=== PATIENT | female | born 1955 | race Caucasian/White ===

== ENCOUNTER → 2017-09-18 | Day surgery (SDC) | payer OTHER ==
[~2017-09-18] MED LIST: ALLEGRA ALLERGY60 MG PO; ATORVASTATIN CA20 MG PO; CALCIUM PO; COQ-10 PO; CRESTOR10 MG PO; EPHEDRINE SULFATE INJ 50 MG/10 ML SYR ONE; FENTANYL CITRATE/PF 100MCG/2 ML INJ ONE; GLUCAGON FOR INJ 1 MG VIAL ONE; HYOSCYAMINE SULFATE 0.5 MG/ML AMP ONE; INVOKANA PO; METFORMIN HCL500 MG PO; MIDAZOLAM HCL 2 MG/2 ML VIAL ONE; PANTOPRAZOLE SO40 MG PO; PROPOFOL IV EMULSION 10 MG/ML 50 ML VIAL ONE; VITAMIN B1 PO; VITAMIN D PO
--- NOTE | 2017-09-18 09:56 | Operative Report ---
DATE OF PROCEDURE: September 18, 2017 PROCEDURES PERFORMED 1. Esophagogastroduodenoscopy with biopsies. 2. Colonoscopy with polypectomy and biopsies. INDICATIONS FOR EGD: Dysphagia. INDICATIONS FOR COLONOSCOPY: Colorectal cancer screening and personal history of colon polyps. MEDICATION: Patient was done under MAC. Please see anesthesiologist's note. PROCEDURE: With the patient in the left lateral decubitus position, the flexible fiberoptic Olympus gastroscope was introduced into the esophagus under direct visualization without any difficulty. There was some patchy erythema noted in the distal esophagus. There was a mild stricture noted at the GE junction that was dilated to size 54-[place] Winter. The scope was then advanced with ease into the stomach. Mucosa overlying the antrum and the body revealed some patchy erythema and low-grade to moderate edema, and biopsies were obtained and sent to stain for H. pylori. An approximately 4-mm nodule was noted in the antrum that was biopsied. The pylorus was of normal contour and shape. It was intubated with ease. The scope was advanced all the way to the 2nd portion of the duodenum. The scope was then withdrawn slowly. Mucosa overlying the proximal 2nd portion, as well as the duodenal bulb other than some patchy erythema noted in the bulb appeared to be within normal limits. The scope was then withdrawn back into the stomach and retroflexed. The mucosa overlying the fundus and the cardia and appeared to be within normal limits. The scope was then straightened out. The stomach was decompressed. The scope was subsequently withdrawn. Patient tolerated the procedure well. IMPRESSION 1. Mild distal esophagitis. 2. Gastritis, biopsied. Biopsies sent to stain for Helicobacter pylori. 3. Gastric nodule, antrum, biopsied. PLAN: Follow up histology. Continue Protonix 40 mg 1 p.o. q.a.m. a.c. Patient was then turned around. After adequate lubrication of the anal canal, a flexible fiberoptic Olympus colonoscope was inserted into the rectum with ease and advanced all the way to the cecum. The midsigmoid colon was sharply angulated and was negotiated with some difficulty. One sessile polyp was noted in the cecum and that was snared. An approximately 1 cm submucosal lesion was noted in the in the mid-ascending colon that was suspicious for lipoma and that was biopsied. The rest of the ascending, transverse, descending, sigmoid, and rectum grossly appeared to be within normal limits. The midsigmoid colon was not optimally visualized as it was sharply angulated. The scope was then retroflexed into the distal rectum and small internal hemorrhoids were noted, none of which was actively bleeding. The scope was then straightened out. The scope was subsequently withdrawn. Patient tolerated the procedure well. IMPRESSION 1. Cecal polyp, snared. 2. Rule out lipoma, ascending colon. 3. Internal hemorrhoids, none actively bleeding. PLAN: Follow up histology. Initiate high-fiber and low-fat diet. Initiate high-fiber supplement. Patient will need a followup colonoscopy in 3 years. Job#: [id number] GUERITA
== END | disposition home or self-care (01) ==
LOC: OR 07:05
PROVIDERS: ATTEND Internal Medicine Gastroenterology
DX: Z12.11 Encounter for screening for malignant neoplasm of colon (principal); K63.5 Polyp of colon; K29.70 Gastritis, unspecified, without bleeding; K22.2 Esophageal obstruction; K31.89 Other diseases of stomach and duodenum; K63.9 Disease of intestine, unspecified; K21.9 Gastro-esophageal reflux disease without esophagitis; K20.9 Esophagitis, unspecified; K64.8 Other hemorrhoids; E11.9 Type 2 diabetes mellitus without complications; F17.200 Nicotine dependence, unspecified, uncomplicated; Z01.810 Encounter for preprocedural cardiovascular examination
CPT/HCPCS: 36415; 43239; 43450; 45380; 45385; 82948; 93005; J1610; J1980; J2250

== ENCOUNTER 2018-09-25 14:40 | Inpatient (IN) | payer OTHER ==
[~2018-09-25] VITALS: Ht 162.6 cm; Wt 80.7 kg
[~2018-09-25 14:40] MED LIST changes: -EPHEDRINE SULFATE INJ 50 MG/10 ML SYR ONE; -FENTANYL CITRATE/PF 100MCG/2 ML INJ ONE; -GLUCAGON FOR INJ 1 MG VIAL ONE; -HYOSCYAMINE SULFATE 0.5 MG/ML AMP ONE; -MIDAZOLAM HCL 2 MG/2 ML VIAL ONE; -PROPOFOL IV EMULSION 10 MG/ML 50 ML VIAL ONE
--- OUTSIDE RECORDS SUMMARY | 2018-09-25 14:43 | XMS REPORT ---
Author Author [facility] Address Unknown Phone Unavailable Care Team Providers Care Bark Tanner Name Role Phone Unavailable Unavailable Problems This patient has no known problems. Allergies, Adverse Reactions, Alerts This patient has no known allergies or adverse reactions. Medications This patient has no known medications.
[2018-09-25] MEDS ORDERED: MIDAZOLAM HCL 2 MG/2 ML VIAL ONE (14:48)
[2018-09-25] MEDS ORDERED: FENTANYL CITRATE/PF 100MCG/2 ML INJ ONE (14:48)
[2018-09-25] MEDS ORDERED: INSULIN REGULAR, HUMAN 100 UNIT/1 ML 3ML VIAL IV STA (15:41)
[2018-09-25] MEDS ORDERED: INSULIN REGULAR, HUMAN 100 UNIT/1 ML 3ML VIAL SQ ONE (15:45)
[2018-09-25] MEDS ORDERED: SODIUM CHLORIDE 0.9% 1000ML 1,000 ML IV SCH ×3 (15:45→18:15)
[2018-09-25] MEDS ORDERED: INSULIN REGULAR, HUMAN 100 UNIT/1 ML 3ML VIAL IV ONE (16:00)
[2018-09-25] MEDS ORDERED: PIPER-TAZ 3.375 GM 50 ML IV ONE (16:00)
[2018-09-25] MEDS ORDERED: VANCOMYCIN 1GM/NS 250 ML 250 ML IV ONE (16:30)
--- NOTE | 2018-09-25 17:10 | Diagnostic Imaging Report ---
EXAM: CT Pelvis WITH contrast INDICATION: Concern for perineal infectious process. ^[id number] ^[id number] COMPARISON: None. TECHNIQUE: Pelvis were scanned utilizing a multidetector helical scanner from the iliac crest to the pubic symphysis after administration of IV contrast. Coronal and sagittal reformations were obtained. Routine protocol was performed. Scan was performed when during portal venous phase. IV CONTRAST: 100 mL of Omnipaque 300 ORAL CONTRAST: Water COMPLICATIONS: None RADIATION DOSE: Total DLP: 375.24 mGy*cm Estimated effective dose: (DLP x 0.015 x size factor) mSv CTDIvol has been reviewed. It is below the limits set by the Radiation Protocol Committee (RPC). FINDINGS: LINES and TUBES: None. GI TRACT: Visualized bowel loops are unremarkable. No evidence of bowel obstruction. Normal appendix. PELVIC ORGANS/BLADDER: Uterus and adnexa are unremarkable on limited CT assessment. Normal bladder. LYMPH NODES: 2.3 cm right external iliac lymph node (series 2, image 31), likely reactive. VESSELS: Mild aortoiliac atherosclerotic disease. PERITONEUM / RETROPERITONEUM: No free air or fluid. BONES: L4-5 degenerative changes. SOFT TISSUES: Fat stranding and soft tissue gas, extending from right perineum to the right labia major. IMPRESSION: Fat stranding and soft tissue gas, extending from right perineum to the right labia major, concerning for necrotizing fasciitis or Serene gangrene. Signed by: Dr. Morris Noonan MD on 09/25/2018 5:07 PM
[2018-09-25] MEDS ORDERED: ACETAMINOPHEN 1000 MG/100 ML IV ONE (17:14)
[2018-09-25] MEDS ORDERED: PROPOFOL IV EMULSION 10 MG/ML 20 ML VIAL ONE (17:14)
[2018-09-25] MEDS ORDERED: KETOROLAC TROMETHAMINE 30 MG/ML VIAL ONE (17:14)
[2018-09-25] MEDS ORDERED: DEXAMETHASONE SOD PHOS INJ 4 MG/ML VIAL ONE (17:14)
[2018-09-25] MEDS ORDERED: SUCCINYLCHOLINE 200 MG/10 ML SYR ONE (17:14)
[2018-09-25] MEDS ORDERED: ONDANSETRON HCL INJ 2 MG/ML VIAL ONE (17:14)
[2018-09-25] MEDS ORDERED: LIDOCAINE HCL 2% LOCAL INJ 5 ML SDV VIAL INJ ONE (17:14)
[2018-09-25] MEDS ORDERED: SEVOFLURANE INHAL SOLN 250 ML PEN BTL ONE (17:14)
[2018-09-25] MEDS ORDERED: DEXTROSE 50% SYRINGE 50 ML IV PRN (17:45)
[2018-09-25] MEDS ORDERED: ONDANSETRON HCL INJ 2 MG/ML VIAL IV PRN ×2 (17:45→22:30)
[2018-09-25] MEDS ORDERED: HYDROMORPHONE 1MG/1ML INJ IV PRN (17:45)
[2018-09-25] MEDS: VANCOMYCIN 1GM/NS 250 ML 250 ML IV SCH (17:47)
[2018-09-25] MEDS ORDERED: PIPER-TAZ 3.375 GM 50 ML IV SCH ×2 (18:00→22:00)
--- NOTE | 2018-09-25 18:21 | NUR ---
called ems around 1800 report to matias Lyles
--- NOTE | 2018-09-25 18:23 | NUR ---
informed of need to contact dr segal on arrival during report.
[2018-09-25] MEDS ORDERED: CLINDAMYCIN PHOS 900MG/ 50ML 50 ML IV ONE (18:45)
[2018-09-25 20:00] VITALS: BP 149/65
[2018-09-25] MEDS: SODIUM CHLORIDE 0.9% 1000ML 1,000 ML IV SCH (20:00)
--- NOTE | 2018-09-25 20:01 | NUR ---
Pt received from [facility]. Assumed care due to pt needing a female nurse. Pt A&O and in no apparent distress. Pt labial area assessed and pt has no complaints of pain currently. All safety measures ensured. Dr. Perez contacted as requested once pt arrived to floor. Awaiting MD orders and to see if pt possibly having surgery tonight.
[2018-09-25] MEDS ORDERED: HYDROMORPHONE 2MG/ML 2 MG/ML ML IV PRN (20:15)
[2018-09-25 20:20] VITALS: BP 149/65
--- NOTE | 2018-09-25 20:27 | NUR ---
2nd call placed to Dr. Perez
--- NOTE | 2018-09-25 21:21 | NUR ---
Dr. Chris shipley to see pt; Pt to have I&D with debridement of perineal abscess tonight. Consent signed and pt NPO since this am.
--- NOTE | 2018-09-25 21:52 | NUR ---
pt off unit for surgery
--- NOTE | 2018-09-25 22:22 | Consultation ---
DATE OF CONSULTATION: September 25, 2018 REFERRING PHYSICIAN: Dr. Tristin Young HISTORY OF PRESENT ILLNESS: Patient is a 63-year-olo female who presents with complaints of pain and swelling in the right perineal area. This started about 10 days ago as what she says was a boil in the right side of her vulvar area. So, she tried to drain it herself, but then went to urgent care where they gave her antibiotics, but she did not improve and she came to the emergency room today where she was found to have a large area of swelling in the perineum. Patient had a CT scan of the abdomen and pelvis, which reveals inflammatory changes in this area with air on the tissues. PAST MEDICAL HISTORY: Significant for diabetes mellitus. Medications at home are metformin for this. She also has a history of hypercholesterolemia for which she takes atorvastatin. OTHER MEDICATIONS: Shamika, Protonix, Invokana, vitamin D, and calcium. ALLERGIES: SHE HAS ALLERGIES TO SULFA. FAMILY HISTORY: Noncontributory. SOCIAL HISTORY: The patient is a former smoker. Says she quit about a month ago. Does not drink alcohol. REVIEW OF SYSTEMS: She denies any fever or weight loss. No other symptoms. No chest pains. No shortness of breath. PHYSICAL EXAMINATION GENERAL: The patient is awake and alert. VITAL SIGNS: Normal. She is afebrile. HEENT: Reveals no scleral icterus. NECK: No masses. LUNGS: Equal breath sounds. They are clear bilaterally. CARDIAC: Regular rate and rhythm with no murmur. ABDOMEN: Soft. There is no tenderness. No mass. No organomegaly. PELVIC: In the vulvar area, there is swelling of the right labia majora with erythema, which extends up into the suprapubic area. There is no obvious necrotic tissue. It was very tender and no drainage is noted. EXTREMITIES: No edema. NEUROLOGIC: Grossly intact. LABORATORY TESTS: White blood cell count is 18.9, hemoglobin and hematocrit normal. Chemistries are elevated. Glucose 411. BUN is mildly elevated at 25. ASSESSMENT AND PLAN: A 63-year-old female with possible necrotizing infection in the perineum. She will need surgery to be done tonight to drain the area with excisional debridement. Procedure was explained to the patient including risks, benefits, and alternatives. She understands the procedure. She has had the opportunity to ask questions. Thank you for asking me to see Ms Mahmood. Job#: [id number] RTY
[2018-09-25] MEDS ORDERED: MORPHINE SULFATE INJ 4 MG/ML INJ IV PRN (22:30)
[2018-09-25] MEDS ORDERED: CLINDAMYCIN PHOS 900MG/ 50ML 50 ML IV SCH (23:00)
--- NOTE | 2018-09-25 23:34 | NUR ---
Pt returned to unit from surgery. Pt doing well and in no apparent distress. Bedside report received from OR nurse. Assess wound post surgery, clean dry and intact. Pt states pain is 1 out of 10 currently.
--- NOTE | 2018-09-25 23:42 | Operative Report ---
DATE OF PROCEDURE: September 25, 2018 PREOPERATIVE DIAGNOSIS: Right vulvar abscess, necrotizing fasciitis of the perineum. POSTOPERATIVE DIAGNOSIS: Right vulvar abscess, necrotizing fasciitis of the perineum. PROCEDURE: Incision and drainage of right vulvar abscess, excisional debridement of necrotizing fasciitis of the right perineum, skin, subcutaneous tissue and fascia 300 cm2. CLINICAL RESEARCH ANALYST: None. ANESTHESIA: General endotracheal. INDICATIONS AND FINDINGS: Patient is a 63-year-old female who presented with complains of pain and swelling starting in the right vulvar area and extended up into the right groin and suprapubic area. At surgery, there was abscess with purulent fluid within the right vulva, but there was necrotizing infection extending superiorly and also somewhat laterally involving the right perineum and suprapubic area, skin, subcutaneous tissue and fascia. The underlying muscle was healthy. All necrotic tissue was excised. TECHNIQUE: After adequate general endotracheal anesthesia with the patient in lithotomy position, the perineum and lower abdomen were prepped and draped in sterile fashion with Betadine solution. Starting on the right vulvar area, an incision was made, carried down through the subcutaneous tissue. The abscess cavity was entered, which was in the deep subcutaneous tissue extending down to the fascia. Purulence was drained. Sample was taken for culture and sensitivity. There was found to be a necrotic tissue which was excised and it was found that infection extended laterally as well as superiorly and all the necrotic tissue was excised. This involved subcutaneous tissue and fascia and somewhat small amount of skin which was from the vulva. The tissue was excised back to healthy bleeding tissue. The area of debridement was total of 300 cm2. Hemostasis was achieved with electrocautery. The wound was irrigated with saline, inspected for hemostasis which was seem to be adequate. The wound was then dressed open with saline moistened gauze and sterile dressing applied. The patient tolerated procedure well. Estimated blood loss was 75 mL. There were no complications. All counts were correct. The patient was taken to the recovery room in satisfactory condition. Job#: [id number] GAU cc:Tristin Young MD
[2018-09-26] VITALS (7 sets, daily range): BP systolic 100–151; BP diastolic 55–82
[2018-09-26] MEDS: SODIUM CHLORIDE 0.9% 1000ML 1,000 ML IV SCH ×4 (00:42→18:30)
[2018-09-26] MEDS: PIPER-TAZ 3.375 GM 50 ML IV SCH ×3 (05:41→17:30)
[2018-09-26 06:20] LABS: BASOPHILS % 0.2 % (0.0-1.0); HEMATOCRIT 31.6 % (34.2-44.1); HEMOGLOBIN 9.6 g/dL (12.0-16.0); LYMPHOCYTES # (AUTO) 1.3 (1.0-3.2); LYMPHOCYTES % 6.5 % (18.0-39.1); MEAN CORPUSCULAR HEMOGLOBIN 22.3 pg (28-32); MEAN CORPUSCULAR HGB CONC 30.4 g/dL (31-35); MEAN CORPUSCULAR VOLUME 73.5 fL (81-99); MONOCYTES # (AUTO) 1.1 (0.2-0.8); MONOCYTES % 5.7 % (4.4-11.3); NEUTROPHILS # (AUTO) 16.8 (2.1-6.9); NEUTROPHILS % 86.1 % (38.7-80.0); PLATELET COUNT 342 x10e3/uL (140-360); RED CELL DISTRIBUTION WIDTH 17.4 % (11.7-14.4)
[2018-09-26] MEDS: VANCOMYCIN 1GM/NS 250 ML 250 ML IV SCH ×2 (06:37→18:27)
[2018-09-26 06:47] LABS: ANION GAP 15.7 mmol/L (8-16); CALCIUM 8.9 mg/dL (8.4-10.2); CREATININE, SERUM 0.94 mg/dL (0.57-1.11); POTASSIUM 4.7 mmol/L (3.5-5.1)
--- NOTE | 2018-09-26 07:07 | NUR ---
report given to oncoming nurse. walking rounds complete
[2018-09-26] MEDS: CLINDAMYCIN PHOS 900MG/ 50ML 50 ML IV SCH ×2 (08:53→16:52)
[2018-09-26] MEDS ORDERED: DEXTROSE 50% SYRINGE 50 ML IV PRN (11:00)
[2018-09-26] MEDS ORDERED: INSULIN DETEMIR 100 UNIT/ML PEN SQ ONE (12:00)
[2018-09-26] MEDS: INSULIN LISPRO 100 UNIT/1 ML 3ML VIAL SQ SCH ×3 (12:31→21:00)
--- NOTE | 2018-09-26 12:42 | History and Physical ---
CHIEF COMPLAINT: Serene gangrene, early, associated with perineal abscess, failed outpatient treatment. HISTORY: Patient is a 63-year-old female with diabetes type 2, on oral medications that went to urgent care for the infection, did receive some antibiotics vaguely, did not improve. The patient's symptoms started approximately 10 days ago where she developed a boil and then subsequently tenderness. Patient was given clindamycin but did not improve. Therefore, the patient ended up in the emergency room this time. She had a right vulvar abscess with necrotizing fascitis of the perineum. The patient needed emergent surgical intervention, Dr. Jesús Perez consulted. Patient's blood sugar in the 200 to 300. PAST MEDICAL HISTORY: Dyslipidemia; hypertension; diabetes type 2, on oral medication. PAST SURGICAL HISTORY: Noncontributory. SOCIAL HISTORY: Patient does not smoke or use alcohol. No recreational drugs. ALLERGIES: TO SULFA. HOME MEDICATIONS: List is reviewed. REVIEW OF SYSTEMS: Right groin vaginal area pain and swelling with abscess. PHYSICAL EXAMINATION VITAL SIGNS: Temperature is 97, blood pressure 159/92, pulse rate is 89, respirations 18. GENERAL: The patient is in no acute distress. She is awake. HEENT: Normocephalic, atraumatic. Sclerae anicteric. NECK: Supple grossly. PULMONARY: Diminished breath sounds. CARDIOVASCULAR: S1, S2. Tachycardia. ABDOMEN: Soft. Right groin area with abscessed large area with swelling and vulvar area swelling as well. NEUROLOGIC: No focal deficit. LABORATORY: WBC was 19.5, hemoglobin 9.6, hematocrit 31.6, and platelet is of 342. Chemistry, sodium is 141, potassium 4.7, chloride 109, bicarb 21, BUN is 23, creatinine 0.9, glucose is 228. IMPRESSION: Right perineal abscess associated with vulvar infection, associated with early Serene fascitis. PLAN: Patient needed immediate surgical intervention. Dr. Perez consulted. The patient will go to surgery. Insulin sliding-scale coverage and continue to monitor the patient closely. Please review the IV antibiotics vancomycin, Zosyn, and clindamycin. Check blood culture, urine culture. Repeat her lab work. Job#: [id number] LPA
[2018-09-26] MEDS: METFORMIN HCL 500 MG TAB PO SCH (16:52)
--- NOTE | 2018-09-26 19:02 | NUR ---
Patient visited in room during nursing rounds. Patient alert and oriented x3. Pt ambulatory in and out of room prn. Right side of vagina (labia area) with packed (using kerlix) surgical wound and protected with clean dressing (gauze and abd pad). All dressing held in place via mesh panty. Will monitor patient closely.
--- NOTE | 2018-09-26 19:30 | NUR ---
Patient refused IVF (NS at 100ml/hr) to continued. Patient agreed to have IVF just for KVO (at 10ml/hr). Patient does drink water well.
--- NOTE | 2018-09-26 20:50 | NUR ---
Surgical dressings and packings incidentally came off as reported by patient. Nurse (Ten) re-packed wound with NS soaked kerlix then covered with clean gauze and abd pad then overall held in place with mesh panty.
[2018-09-26] MEDS: INSULIN DETEMIR 100 UNIT/ML PEN SQ SCH (21:00)
[2018-09-26] MEDS: ATORVASTATIN 40 MG TAB PO SCH (21:15)
[2018-09-26] MEDS: HYDROCODONE/APAP 5MG-325MG TAB PO PRN (21:15)
[2018-09-27] VITALS (7 sets, daily range): BP systolic 101–143; BP diastolic 56–69
[2018-09-27] MEDS: CLINDAMYCIN PHOS 900MG/ 50ML 50 ML IV SCH ×3 (01:20→16:48)
[2018-09-27] MEDS: VANCOMYCIN 1GM/NS 250 ML 250 ML IV SCH (05:30)
[2018-09-27 05:54] LABS: BASOPHILS # (AUTO) 0.1 (0.0-0.1); BASOPHILS % 0.7 % (0.0-1.0); EOSINOPHILS # (AUTO) 0.2 (0.0-0.4); EOSINOPHILS % 1.3 % (0.0-6.0); HEMATOCRIT 33.5 % (34.2-44.1); HEMOGLOBIN 9.9 g/dL (12.0-16.0); LYMPHOCYTES # (AUTO) 2.4 (1.0-3.2); LYMPHOCYTES % 18.3 % (18.0-39.1); MEAN CORPUSCULAR HGB CONC 29.6 g/dL (31-35); MEAN CORPUSCULAR VOLUME 74.6 fL (81-99); MONOCYTES # (AUTO) 1.5 (0.2-0.8); NEUTROPHILS # (AUTO) 8.4 (2.1-6.9); NEUTROPHILS % 63.2 % (38.7-80.0); PLATELET COUNT 372 x10e3/uL (140-360); RED BLOOD COUNT 4.49 x10e6/uL (3.6-5.1); RED CELL DISTRIBUTION WIDTH 17.6 % (11.7-14.4)
[2018-09-27] MEDS: HYDROCODONE/APAP 5MG-325MG TAB PO PRN ×3 (06:05→23:35)
[2018-09-27 06:21] LABS: ANION GAP 12.1 mmol/L (8-16); BLOOD UREA NITROGEN 21 mg/dL (7-26); BUN/CREATININE RATIO 24 (6-25); CARBON DIOXIDE 24 mmol/L (22-29); CHLORIDE 105 mmol/L (98-107); CREATININE, SERUM 0.89 mg/dL (0.57-1.11); EST GLOMERULAR FILTRATION RATE > 60 ML/MIN (60-); GLUCOSE 109 mg/dL (74-118); POTASSIUM 4.1 mmol/L (3.5-5.1); SODIUM 137 mmol/L (136-145)
--- NOTE | 2018-09-27 07:20 | NUR ---
RECEIVED PATIENT RESTING IN RECLINER. NO ACUTE DISTRESS NOTED. CALL LIGHT WITHIN REACH. BED IN THE LOWEST POSITION.
[2018-09-27] MEDS: INSULIN LISPRO 100 UNIT/1 ML 3ML VIAL SQ SCH ×4 (07:30→21:00)
[2018-09-27] MEDS: PIPER-TAZ 3.375 GM 50 ML IV SCH ×5 (07:31→23:35)
[2018-09-27] MEDS ORDERED: SODIUM CHLORIDE FLUSH 10 ML SYR INJ PRN (09:00)
[2018-09-27 09:03] LABS: ANISOCYTOSIS SLIGHT; EOSINOPHILS % (MANUAL) 2 % (0-7); HYPOCHROMASIA SLIGHT; LYMPHOCYTES % (MANUAL) 20 % (19-48); METAMYELOCYTES % (MANUAL) 1 % (0-0); MONOCYTES % (MANUAL) 10 % (3.4-9.0); MYELOCYTES % (MANUAL) 3 % (0-0); NEUTROPHILS % (MANUAL) 62 % (40-74); PLATELET ESTIMATE ADEQUATE; RBC MORPHOLOGY COMMENT NORMAL
[2018-09-27 09:04] LABS: PLATELET MORPHOLOGY COMMENT NORMAL
[2018-09-27] MEDS: LORATADINE 10 MG TAB PO SCH (09:09)
[2018-09-27] MEDS: PANTOPRAZOLE SOD 40 MG TABEC PO SCH (09:09)
[2018-09-27] MEDS: METFORMIN HCL 500 MG TAB PO SCH ×2 (09:09→16:48)
--- NOTE | 2018-09-27 10:20 | NUR ---
WOUND CARE CONSULT: THIS 63 YO FEMALE WAS ADMITTED FOR PERINEAL ABSCESS/ INFECTION. HISTORY OF DM. PATIENTS SURGEON DR. REYES WROTE ORDERS POST OP TO REINFORCE DRESSING ONLY & PACKING NOT TO BE REMOVED. DRESSING WAS DRY & INTACT TODAY. NURSE REPORTS DR. REYES WILL BE ROUNDING TODAY TO REMOVE DRESSING & ASSESS WOUND. LABS; WBC 13.25 HGA1C 8.9 WOUND CULTURE PENDING THANK YOU FOR THIS CONSULT. RECONSULT IF NEEDED. Addendum: 09/27/18 at 1025 by Noelle Marcelino RN Amended: Links added.
--- NOTE | 2018-09-27 17:49 | NUR ---
CALLED DR. MOFFETT TO INFORM OF VANC TROUGH OF 15.5. ORDER TO CHANGE DOSE TO Q24H STARTING TOMORROW AM.
--- NOTE | 2018-09-27 19:23 | NUR ---
REPORT GIVEN TO ONCOMING NURSE, PATIENT IS RESTING IN RECLINER. NO ACUTE DISTRESS NOTED. CALL LIGHT WITHIN REACH. BED IN THE LOWEST POSITION.
[2018-09-27] MEDS: INSULIN DETEMIR 100 UNIT/ML PEN SQ SCH (21:00)
[2018-09-27] MEDS: ATORVASTATIN 40 MG TAB PO SCH (22:15)
[2018-09-28 00:08] VITALS: BP 132/62
[2018-09-28] MEDS: CLINDAMYCIN PHOS 900MG/ 50ML 50 ML IV SCH ×2 (00:35→08:08)
[2018-09-28] MEDS: PIPER-TAZ 3.375 GM 50 ML IV SCH (05:08)
[2018-09-28] MEDS: HYDROCODONE/APAP 5MG-325MG TAB PO PRN (05:18)
[2018-09-28 05:42] VITALS: BP 122/63
--- NOTE | 2018-09-28 07:21 | NUR ---
RECEIVED PATIENT SITTING UP IN RECLINER. NO ACUTE DISTRESS NOTED. CALL LIGHT WITHIN REACH.
[2018-09-28 07:25] VITALS: BP 130/60
[2018-09-28 07:50] VITALS: BP 130/60
[2018-09-28] MEDS: METFORMIN HCL 500 MG TAB PO SCH (08:08)
[2018-09-28] MEDS: INSULIN LISPRO 100 UNIT/1 ML 3ML VIAL SQ SCH ×2 (08:08→11:22)
[2018-09-28] MEDS: PANTOPRAZOLE SOD 40 MG TABEC PO SCH (08:08)
[2018-09-28] MEDS: LORATADINE 10 MG TAB PO SCH (08:08)
[2018-09-28] MEDS ORDERED: VANCOMYCIN 1GM/NS 250 ML 250 ML IV SCH (09:00)
[2018-09-28 11:21] VITALS: BP 139/66
--- NOTE | 2018-09-28 12:43 | NUR ---
RECEIVED DISCHARGE ORDER FROM MD. PATIENT IS IN STABLE CONDITION. IV LINE TO LEFT FOREARM DC'D AT THIS TIME WITH TIP INTACT, PRESSURE APPLIED TO SITE, NO BLEEDING NOTED. DISCHARGE TEACHING PROVIDED, PATIENT VERBALIZED UNDERSTANDING. ALL DISCHARGE PAPERWORK, PRESCRIPTIONS, AND PERSONAL ITEMS ON HAND. PATIENT ACCOMPANIED TO PRIVATE AUTO VIA WHEELCHAIR BY STAFF.
== END 2018-09-28 12:43 | disposition home or self-care (01) | DRG 746 ==
LOC: FSED 14:40 → ERHOLD 17:48 → MED/SURG3 19:20
PROVIDERS: ADMIT Internal Medicine; ATTEND Internal Medicine
PROC: 0JBB0ZZ Excision of Perineum Subcutaneous Tissue and Fascia, Open Approach (ICD-10-PCS; 2018-09-25)
PROC: 0U9M0ZZ Drainage of Vulva, Open Approach (ICD-10-PCS; principal; 2018-09-25 21:55)
DX: N76.4 Abscess of vulva (principal); M72.6 Necrotizing fasciitis; Z87.891 Personal history of nicotine dependence; E11.65 Type 2 diabetes mellitus with hyperglycemia
CPT/HCPCS: 36415; 72193; 80048; 80202; 82948; 83036; 84443; 85025; 85730; 87071; 87075; 87205; 88304; 93005; 99284; J1100; J1170; J1885; J2001; J2250; J2405; J2543; J3370; J7030

== ENCOUNTER → 2019-12-01 | Outpatient (CLI) | payer MEDICARE ==
[~2019-12-01] MED LIST changes: +BASAGLAR K100 UNIT/1 SQ; +CALCIUM ACETAT667 M1; +GLIMEPIRIDE2 MG PO
--- NOTE | 2019-12-01 13:10 | Diagnostic Imaging Report ---
FLUOROSCOPIC SMALL BOWEL SERIES BORE MILL OPERATOR FOR PLASTIC(S): Ottoniel Baldwin MD Indication: Anemia Comparison: None. Radiation Dose: Total dose: 20.2 mGy Total fluoroscopy time: 0.8 minutes Procedure: Small bowel follow through exam was performed using oral barium. Preliminary image was obtained before administration of contrast and serial overhead images were obtained after administration of oral barium. Fluoroscopy was performed and spot images were obtained. DISCUSSION: CARD LACER JACQUARD: The bowel gas pattern is non-obstructive. No acute bony abnormality. STOMACH: Unremarkable mucosal pattern. SMALL BOWEL: Bulb and sweep are normal. Duodenal-jejunal junction is in the normal expected position. Small bowel loops are normal in caliber and distribution. There is no evidence of fistula, mucosal changes, stricture or dilation. The transit time was within normal limits. COLON: Partially visualized proximal colon is unremarkable. IMPRESSION: Unremarkable fluoroscopic small bowel series. Signed by: Ottoniel Baldwin MD on 12/01/2019 1:07 PM
== END ==
LOC: DX 08:44
PROVIDERS: ATTEND Internal Medicine Gastroenterology
DX: D64.9 Anemia, unspecified (principal)
CPT/HCPCS: 74250

== ENCOUNTER 2020-03-05 15:56 | Emergency (ER) | payer MEDICARE ==
[~2020-03-05] VITALS: Ht 162.6 cm; Wt 87.2 kg
--- OUTSIDE RECORDS SUMMARY | 2020-03-05 15:59 | XMS REPORT | Summary of Care ---
Author Author [facility] - Health Organization [facility] - Health Address Unknown Phone Unavailable Care Team Providers Care Shrub Planter Name Role Phone Reshma Jacobs MD PCP Reason for Visit * Reason Comments Hyperglycemia Encounter Details Care Team Description Date Type Department Reshma Jacobs MD [address] [place] [address] [phone] Type 2 diabetes mellitus without complic ation, with long-term current use of insulin (Primary Dx); Pure hypercholesterolemia; Gastroesophageal reflux disease without esophagitis 01/26/2020 Telemedicine [facility] Visit Endocrinology, [address] [address] Allergies Comments Active Allergy Reactions Severity Noted Date Gabapentin Other - See 01/28/2019 comments Sulfa (Sulfonamide Rash 09/16/2018 Antibiotics) documented as of this encounter (statuses as of 01/26/2020) Medications End Date Status Medication Sig Dispensed Refills Start Date Active calcium carbonate Take by 0 (CALCIUM 600 ORAL) mouth. Active blood sugar diagnostic 0 (CONTOUR TEST STRIPS MISC) Active canagliflozin (INVOKANA) Take 1 tablet 90 tablet 1 300 mg tabletIndications: by mouth 9 Type 2 diabetes mellitus daily. with diabetic polyneuropathy, without long-term current use of insulin Active pantoprazole (PROTONIX) Take 1 tablet 90 tablet 1 40 mg EC by mouth 0 tabletIndications: daily. Gastroesophageal reflux disease without esophagitis Active atorvastatin 40 mg tablet Take 1 tablet 90 tablet 1 by mouth at 0 bedtime. Active Insulin [place], Use to inject 200 Each 3 02 Disposable, (VERNON PEN insulin at 0 NEEDLE) 32 gauge x 5/32" bedtime. Ndle E11.42 Active metformin ER 500 mg 24 hr Take 2 360 tablet 1 tablet tablets by 0 mouth 2 (two) times daily. Active blood sugar diagnostic Use as 100 Strip 4 (CONTOUR NEXT TEST directed 0 STRIPS) stripIndications: Type 2 diabetes mellitus without complication, with long-term current use of insulin Active Insulin [place] Prot, inject 25 1 Box 1 Hum, (HUMALOG MIX 75-25 Units under 0 KWIKPEN) 100 unit/mL the skin 2 (75-25) (two) times injectionIndications: daily with Type 2 diabetes mellitus meals. without complication, with long-term current use of insulin 01/26/2020 Discontinued (Therapy comple pam) varenicline (CHANTIX) 1 Take 1 tablet 60 tablet 2 mg tablet by mouth 2 9 (two) times daily. 01/26/2020 Discontinued (Reorder) atorvastatin 40 mg Take 1 tablet 90 tablet 1 09/22 tabletIndications: Mixed by mouth at 9 hyperlipidemia bedtime. 01/26/2020 Discontinued (Therapy comple pam) glimepiride 4 mg Take 1 tablet 90 tablet 1 01 tabletIndications: Type 2 by mouth 9 diabetes mellitus with daily with diabetic polyneuropathy, breakfast. without long-term current use of insulin 01/26/2020 Discontinued (Reorder) metformin ER 500 mg 24 hr Take 2 360 tablet 1 tabletIndications: Type 2 tablets by 9 diabetes mellitus with mouth 2 (two) diabetic polyneuropathy, times daily. without long-term current use of insulin 01/26/2020 Discontinued (Reorder) pantoprazole (PROTONIX) Take 1 tablet 90 tablet 1 40 mg EC by mouth 9 tabletIndications: daily. Gastroesophageal reflux disease without esophagitis 01/26/2020 Discontinued (Alternate ther apy) Insulin Detemir (LEVEMIR inject 15 1 Box 4 1 FLEXTOUCH U-100 INSULN) Units under 9 100 unit/mL (3 mL) the skin at injectionIndications: bedtime. Type 2 diabetes mellitus with diabetic polyneuropathy, without long-term current use of insulin 01/26/2020 Discontinued (Reorder) Insulin [place], Use to inject 100 Each 1 01 Disposable, (VERNON PEN insulin at 9 NEEDLE) 32 gauge x 5/32" bedtime. NdleIndications: Type 2 E11.42 diabetes mellitus with diabetic polyneuropathy, without long-term current use of insulin documented as of this encounter (statuses as of 01/26/2020) Active Problems Problem Noted Date Type 2 diabetes mellitus without complication, with l mitul-term current use 01/26/2020 of insulin Pure hypercholesterolemia 01/26/2020 Gastroesophageal reflux disease without esophagitis 01/28/2019 documented as of this encounter (statuses as of 01/26/2020) Resolved Problems Problem Noted Date Resolved Date Non-ulcer dyspepsia 2018 01/28/2019 documented as of this encounter (statuses as of 01/26/2020) Social History Date Tobacco Use Types Packs/Day Years Used Former Smoker Smokeless Tobacco: Former User Comments: stopped 2017 Drinks/Week oz/Week Comments Alcohol Use No Sex Assigned at Date Recorded Not on file Industry Job Start Date Occupation Not on file Not on file Not on file Travel End Travel History Travel Start No recent travel history available. documented as of this encounter Last Filed Vital Signs Not on filedocumented in this encounter Progress Notes * Reshma Jacobs MD - 01/26/2020 10:30 AM CDT Cc: No chief complaint on file. Gabriela Mahmood is a 64 year old female. Known diabetic on multiple medications including insulins, current AIC is high. Patient quit smoking few months ago feel good. Allergies Gabriela is allergic to gabapentin and sulfa (sulfonamide antibiotics). Medications Outpatient Medications Prior to Visit Medication Sig Dispense Refill canagliflozin (INVOKANA) 300 mg tablet Take 1 tablet by mouth daily. 90 tabl et 1 glimepiride 4 mg tablet Take 1 tablet by mouth daily with breakfast. 90 tabl et 1 atorvastatin 40 mg tablet Take 1 tablet by mouth at bedtime. 90 tablet 1 Insulin Detemir (LEVEMIR FLEXTOUCH U-100 INSULN) 100 unit/mL (3 mL) injectio n inject 15 Units under the skin at bedtime. 1 Box 4 Insulin [place], Disposable, (VERNON PEN NEEDLE) 32 gauge x 5/32" Ndle Use to inject insulin at bedtime. E11.42 100 Each 1 metformin ER 500 mg 24 hr tablet Take 2 tablets by mouth 2 (two) times daily . 360 tablet 1 pantoprazole (PROTONIX) 40 mg EC tablet Take 1 tablet by mouth daily. 90 tab let 1 varenicline (CHANTIX) 1 mg tablet Take 1 tablet by mouth 2 (two) times daily . 60 tablet 2 blood sugar diagnostic (CONTOUR TEST STRIPS MISC) calcium carbonate (CALCIUM 600 ORAL) Take by mouth. No facility-administered medications prior to visit. Histories Past Medical History: Diagnosis Date Diabetes High cholesterol Obesity No past surgical history on file. Social History Socioeconomic History Marital status: Spouse name: Not on file Number of children: Not on file Years of education: Not on file Highest education level: Not on file Occupational History Not on file Social Needs Financial resource strain: Not on file Food insecurity: Worry: Not on file Inability: Not on file Transportation needs: Medical: Not on file Non-medical: Not on file Tobacco Use Smoking status: Former Smoker Smokeless tobacco: Former User Tobacco comment: stopped 2017 Substance and Sexual Activity Alcohol use: No Drug use: No Sexual activity: Not on file Lifestyle Physical activity: Days per week: Not on file Minutes per session: Not on file Stress: Not on file Relationships Social connections: Talks on phone: Not on file Gets together: Not on file Attends congregational service: Not on file Active member of club or organization: Not on file Attends meetings of clubs or organizations: Not on file Relationship status: Not on file Intimate partner violence: Fear of current or ex partner: Not on file Emotionally abused: Not on file Physically abused: Not on file Forced sexual activity: Not on file Other Topics Concern Not on file Social History Narrative Not on file No family history on file. Review of Systems Constitutional: Negative. HENT: Negative. Respiratory: Negative. Cardiovascular: Negative. Gastrointestinal: Negative. Musculoskeletal: Negative. Neurological: Negative. Psychiatric/Behavioral: Negative. Endocrine: Endocrine negative Vital Signs There were no vitals taken for this visit. Physical Exam Assessment/Plan Diagnoses and all orders for this visit: Type 2 diabetes mellitus without complication, with long-term current use of ins ulin - blood sugar diagnostic (CONTOUR NEXT TEST STRIPS) strip; Use as directed - GLYCOSYLATED HEMOGLOBIN (A1C); Future - Insulin [place] Prot, Hum, (HUMALOG MIX 75-25 KWIKPEN) 100 unit/mL (75-25) injection; inject 25 Units under the skin 2 (two) times daily with meals. Pure hypercholesterolemia Gastroesophageal reflux disease without esophagitis - pantoprazole (PROTONIX) 40 mg EC tablet; Take 1 tablet by mouth daily. - BASIC METABOLIC PANEL (NA, K, CL, CO2, GLUCOSE, BUN, CREATININE, CA); Futu re Other orders - atorvastatin 40 mg tablet; Take 1 tablet by mouth at bedtime. - Insulin [place], Disposable, (VERNON PEN NEEDLE) 32 gauge x 5/32" Ndle; Use to inject insulin at bedtime. E11.42 - metformin ER 500 mg 24 hr tablet; Take 2 tablets by mouth 2 (two) times da katlin. Discharge sulfonylurea ineffective, change insulins. TELEHEALTH NOTE Verbal consent obtained from Patient: Gabriela Mahmood due to the COVID-19 pandemi c for telehealth services provided below. Communication with patient was conducted via Telephone due to patient unable to obtain video call option. Location of Patient: Home Location of Provider: Clinic Date of Service: 01/26/2020 Chief Complaint: HPI: Gabriela Mahmood is a 64 year old female with Past Medical History: Diagnosis Date Diabetes High cholesterol Obesity MEDICATIONS: Current Outpatient Medications Medication Sig Dispense Refill atorvastatin 40 mg tablet Take 1 tablet by mouth at bedtime. 90 tablet 1 blood sugar diagnostic (CONTOUR NEXT TEST STRIPS) strip Use as directed 100 Strip 4 Insulin [place] Prot, Hum, (HUMALOG MIX 75-25 KWIKPEN) 100 unit/mL (75- 25) injection inject 25 Units under the skin 2 (two) times daily with meals. 1 Box 1 Insulin [place], Disposable, (VERNON PEN NEEDLE) 32 gauge x 5/32" Ndle Use to inject insulin at bedtime. E11.42 200 Each 3 metformin ER 500 mg 24 hr tablet Take 2 tablets by mouth 2 (two) times daily . 360 tablet 1 pantoprazole (PROTONIX) 40 mg EC tablet Take 1 tablet by mouth daily. 90 tab let 1 canagliflozin (INVOKANA) 300 mg tablet Take 1 tablet by mouth daily. 90 tabl et 1 blood sugar diagnostic (CONTOUR TEST STRIPS [facility] [place] calcium carbonate (CALCIUM 600 ORAL) Take by mouth. No current facility-administered medications for this visit. ROS TELEHEALTH EXAM ASSESSMENT/ PLAN Gabriela Mahmood is a 64 year old female with PMH as above presenting with: 1. Type 2 diabetes mellitus without complication, with long-term current use of insulin - blood sugar diagnostic (CONTOUR NEXT TEST STRIPS) strip; Use as directed Disp ense: 100 Strip; Refill: 4 - GLYCOSYLATED HEMOGLOBIN (A1C); Future - Insulin [place] Prot, Hum, (HUMALOG MIX 75-25 KWIKPEN) 100 unit/mL (75-25) injection; inject 25 Units under the skin 2 (two) times daily with meals. Dispense: 1 Box; Refill: 1 2. Pure hypercholesterolemia 3. Gastroesophageal reflux disease without esophagitis - pantoprazole (PROTONIX) 40 mg EC tablet; Take 1 tablet by mouth daily. Dispen se: 90 tablet; Refill: 1 - BASIC METABOLIC PANEL (NA, K, CL, CO2, GLUCOSE, BUN, CREATININE, CA); Future After visit summary (AVS ) documentation will be available through [facility] for t his encounter. A total of 25 minutes was spent on the Telephone due to patient unable to obtain video call option. Reshma Jacobs MD documented in this encounter Plan of Treatment Care Team Description Date Type Specialty Reshma Jacobs MD [address] [place] [id number] [phone] 04/19/2020 Office Visit Endocrinology [facility] Metabolism Order Schedule Name Type Priority Associated Diag noses Expected: 02/25/2020, Expires: 1 GLYCOSYLATED HEMOGLOBIN LAB Routine Type 2 diabetes mellitus (A1C) without complication, with long-term current use of insulin Expected: 02/25/2020, Expires: 1 BASIC METABOLIC PANEL LAB Routine Gastroes ophageal reflux (NA, K, CL, CO2, GLUCOSE, disease without BUN, CREATININE, CA) esophagitis Health Maintenance Due Date Last Done Comments HEPATITIS C (HCV) SCREEN 1954 URINE MICROALBUMIN 1964 DTaP,Tdap,and Td Vaccines 1965 (1 - Tdap) Breast Cancer Screening 1994 (MAMMOGRAM) COLONOSCOPY 2004 Zoster Recombinant 2004 Vaccine (SHINGRIX) (1 of 2) LUNG CANCER SCREEN: 2009 Recommended for age 55-80 with 30 + pack year history INFLUENZA VACCINE (#1) 2019 Medicare Wellness Visit 2019 Osteoporosis Screening 2019 PNEUMOCOCCAL VACCINES 65+ 2019 (1 of 2 - PCV13) EYE EXAM 03/15/2020 03/15/2019 HgA1C 06/23/2020 12/22/2019, 019, 04/22/2019, Additional history exists FOOT EXAM 09/22/2020 09/22/2019, 019, 09/22/2019 CREATININE (SERUM) 12/21/2020 12/22/2019, 019, 04/22/2019, Additional history exists LDL-C 12/21/2020 12/22/2019, , 12/30/2018 documented as of this encounter Results Not on filedocumented in this encounter Visit Diagnoses Diagnosis Type 2 diabetes mellitus without compli cation, with long-term current use of insulin - Primary Pure hypercholesterolemia Gastroesophageal reflux disease without esophagitis Esophageal reflux documented in this encounter Insurance Type Payer Benefit Subscriber ID Effective Phone Address Plan / Dates Group Medicare MEDICARE MEDICARE xxxxxxxxxxx 2019- [phone] [address] [place] [employer] [place] Present [id number] [place] [id number] Medicare Supplement [facility] [id number] 2019- [facility] Present [id number] MED[address] [place] [id number] documented as of this encounter
--- OUTSIDE RECORDS SUMMARY | 2020-03-05 15:59 | XMS REPORT | Summary of Care ---
Author Author [facility] - Health Organization [facility] - Health Address Unknown Phone Unavailable Care Team Providers Care Tank Carpenter Name Role Phone Reshma Jacobs MD PCP Reason for Visit * Reason Comments LAB WORK Encounter Details Care Team Description Date Type Department Reshma Jacobs MD [address] [place] [id number] [phone] Draw, [facility] Lab Type 2 diabetes mellitus with diabetic p olyneuropathy, without long-term current use of insulin; Mixed hyperlipidemia 12/22/2019 [employer]el Service Technician [facility] Visit Laboratory, [address] [address] Allergies Comments Active Allergy Reactions Severity Noted Date Gabapentin Other - See 01/28/2019 comments Sulfa (Sulfonamide Rash 09/16/2018 Antibiotics) documented as of this encounter (statuses as of 12/22/2019) Medications End Date Status Medication Sig Dispensed Refills Start Date Active calcium carbonate Take by 0 (CALCIUM 600 ORAL) mouth. Active blood sugar diagnostic 0 (CONTOUR TEST STRIPS MISC) Active varenicline (CHANTIX) 1 Take 1 tablet 60 tablet 2 mg tablet by mouth 2 9 (two) times daily. Active atorvastatin 40 mg Take 1 tablet 90 tablet 1 09/22 tabletIndications: Mixed by mouth at 9 hyperlipidemia bedtime. Active canagliflozin (INVOKANA) Take 1 tablet 90 tablet 1 300 mg tabletIndications: by mouth 9 Type 2 diabetes mellitus daily. with diabetic polyneuropathy, without long-term current use of insulin Active glimepiride 4 mg Take 1 tablet 90 tablet 1 01 tabletIndications: Type 2 by mouth 9 diabetes mellitus with daily with diabetic polyneuropathy, breakfast. without long-term current use of insulin Active metformin ER 500 mg 24 hr Take 2 360 tablet 1 tabletIndications: Type 2 tablets by 9 diabetes mellitus with mouth 2 (two) diabetic polyneuropathy, times daily. without long-term current use of insulin Active pantoprazole (PROTONIX) Take 1 tablet 90 tablet 1 40 mg EC by mouth 9 tabletIndications: daily. Gastroesophageal reflux disease without esophagitis Active Insulin Detemir (LEVEMIR inject 15 1 Box 4 1 FLEXTOUCH U-100 INSULN) Units under 9 100 unit/mL (3 mL) the skin at injectionIndications: bedtime. Type 2 diabetes mellitus with diabetic polyneuropathy, without long-term current use of insulin Active Insulin [place], Use to inject 100 Each 1 01 Disposable, (VERNON PEN insulin at 9 NEEDLE) 32 gauge x 5/32" bedtime. NdleIndications: Type 2 E11.42 diabetes mellitus with diabetic polyneuropathy, without long-term current use of insulin documented as of this encounter (statuses as of 12/22/2019) Active Problems Problem Noted Date Gastroesophageal reflux disease without esophagitis 01/28/2019 Tobacco abuse 01/28/2019 Type 2 diabetes mellitus with diabetic polyneuropathy , without long-term 2018 current use of insulin Mixed hyperlipidemia 2018 documented as of this encounter (statuses as of 12/22/2019) Resolved Problems Problem Noted Date Resolved Date Non-ulcer dyspepsia 2018 01/28/2019 documented as of this encounter (statuses as of 12/22/2019) Social History Date Tobacco Use Types Packs/Day [...] Signs Not on filedocumented in this encounter Plan of Treatment Care Team Description Date Type Specialty Reshma Jacobs MD [address] [place] [address] [phone] 01/26/2020 Office Visit Endocrinology [facility] Met[facility] Health Maintenance Due Date Last Done Comments [...] 65+ 2019 (1 of 2 - PCV13) HgA1C 02/29/2020 08/31/2019, 019, 12/30/2018 EYE EXAM 03/15/2020 03/15/2019 CREATININE (SERUM) 08/31/2020 08/31/2019, 019, 12/30/2018 LDL-C 08/31/2020 08/31/2019, 019 FOOT EXAM 09/22/2020 09/22/2019, 019, 09/22/2019 documented as of this encounter Results Not on filedocumented in this encounter Visit Diagnoses Diagnosis Type 2 diabetes mellitus with diabetic polyneuropathy, without long-term current use of insulin Mixed hyperlipidemia documented in this encounter Insurance Type Payer Benefit Subscriber ID Effective Phone Address Plan / Dates Group Medicare MEDICARE MEDICARE xxxxxxxxxxx 2019- [phone] [address] PART A & B Present [id number] [place] [id number] Medicare Supplement [facility] [id number] 2019- [address] [facility] Present [id number] MEDICARE [place]PP[place] [id number] documented as of this encounter
--- OUTSIDE RECORDS SUMMARY | 2020-03-05 15:59 | XMS REPORT ---
Author Author [facility] t Organization [facility] Address [address] [place] [address] Phone Unavailable Care Team Providers Care Legal Biller Name Role Phone NO, PCP PCP Unavailable Meenakshi Jacobs MD Attphys Draw, Lab Clc-Bls Attphys Unavailable REVA MOREL Attphys Unavailable Josie JASSO Attphys Unavailable Payers Payer Name Policy Type Policy Number Effective Date Expiration Date Murali Perez Ppo [id number] [facility] Problems This patient has no known problems. Allergies, Adverse Reactions, Alerts Allergy Name Allergy Type Status Severity Reaction(s) Onset Date Inacti ve Date Treating Clinician Comments Source Sulfa (Sulfonamide Antibiotics) Allergy to Substance Active 2018-09-25 00:00:00 [facility] Medications Ordered Medication Name Filled Medication Name Start Date Stop Da te Current Medication? Ordering Clinician Indication Dosage Frequency Signature (SIG) Comments Components Source Atorvastatin Calcium 20 Mg Tablet Atorvastatin Calcium 20 Mg Tablet Yes 40 Bedtime [facility] Calcium 600 Calcium 600 Yes Daily [facility] Fexofenadine Hcl (Shamika Allergy) 60 Mg Tablet Fexofe millie Hcl (Shamika Allergy) 60 Mg Tablet Yes 1 Daily [facility] Invokana Invokana Yes 300 Daily [facility] Metformin Hcl 500 Mg Tablet Metformin Hcl 500 Mg Tablet Yes 1000 Twice A Day [facility] Pantoprazole Sodium (Protonix) 40 Mg Tablet. Pantopr azole Sodium (Protonix) 40 Mg Tablet. Yes 40 Daily [facility] Vitamin D 2000 Vitamin D [address] [facility] Coq-10 , Oral Coq-10 , Oral 2017 00:00:[address] [facility] Rosuvastatin Calcium (Crestor) 10 Mg Tab, 10 Mg Oral R osuvastatin Calcium (Crestor) 10 Mg Tab, 10 Mg Oral 2017 00:00:00 No 10 Daily [facility] Vitamin B1 , Oral Vitamin B1 , Oral 2017 00:00:00 No Daily [facility] Procedures Procedure Date / Time Performed Performing Clinician [facility] e Incision and drainage 2018-09-25 00:00:00 DANIEL REYES [facility] Encounters Start Date/Time End Date/Time Encounter Type Admission Type [facility] Care Department Encounter ID Source 2020-01-26 07:15:12 2020-01-26 07:45:12 Telemedicine Visit Reshma Jacobs [facility] Building [id number] 2019-12-22 11:30:27 2019-12-22 11:45:27 Radiology Therapist Visit Naomy Abernathy Lab [facility] [id number] 2019-12-22 00:00:00 2019-12-22 00:00:00 Telephone Reshma Jacobs [facility] [id number] 2019-06-23 00:00:00 2019-06-23 00:00:00 Refill Reshma Jacobs [facility] [id number] 2019-06-03 10:44:28 2019-06-03 11:36:33 Office Visit Reshma Jacobs [facility] [id number] 2018-09-25 17:48:00 2018-09-28 12:43:00 Discharged Inpatient [address] [facility] [id number] [facility] Results Test Description Test Time Test Comments Results Result Comments Source SMALL BOWEL SERIES 2019-12-01 13:05:00 [facility] [address] [address] Patient Name: ARGELIA HOLLOWAY MR #: [id number] : 1955 Age/Sex: 64/F Req #: [id number] Adm Physician: Ordered by: REVA MOREL MD Report #: [id number] Location: DX Room/Bed: Procedure: [id number] DX/SMALL BOWEL SERIES Exam Date: 12/01/19 Exam Time: 0900 REPORT STATUS: Signed FLUOROSCOPIC SMALL BOWEL SERIES MACHINING ASSOCIATE(S): Cheryl Delgado MD Indication: Anemia Comparison: None. Radiation Dose: Total dose: 20.2 mGy Total fluoroscopy time: 0.8 minutes Procedure: Small bowel follow through exam was performed using oral barium. Preliminary image was obtained before administration of contrast and serial overhead images were obtained after administration of oral barium. Fluoroscopy was performed and spot images were obtained. DISCUSSION: ENGINEER SPECIALIST: The bowel gas pattern is non-obstructive. No acute bony abnormality. STOMACH: Unremarkable mucosal pattern. SMALL BOWEL: Bulb and sweep are normal. Duodenal-jejunal junction is in the normal expected position. Small bowel loops are normal in caliber and distribution. There is no evidence of fistula, mucosal changes, stricture or dilation. The transit time was within normal limits. COLON: Partially visualized proximal colon is unremarkable. IMPRESSION: Unremarkable fluoroscopic small bowel series. Signed by: Cheryl Delgado MD on 12/01/2019 1:07 PM Dictated By: CHERYL DELGADO MD 130 Transcribed By: RAOUL on 12/01/19 1307 COPY TO: REVA MOREL MD Bedside Glucose 2018-09-28 11:44:00 Test Item Bedside Glucose (test code = 31942-4) 121 70-120 H Meter ID: [id number] [facility] Kqelbr3617-83-32 17:47:00* Test Item Value Reference Range Interpretation Comments Vancomycin Level Trough (test code = 4092-3) 15.5 5.0-10.0 HH Results called to RANDOLPH ALLEN at 1746 on 09/27/18 by ELEANOR EVANS. RB [place] .[facility] Total Cells Counted 2018-09-27 09:04:00* Test Item Value Reference Range Interpretation Comments Differential Total Cells Counted (test code = Randy tial Total Cells Counted) 100 [facility] % (Manual)2018-09-27 09:04:00 * Test Item Value Reference Range Interpretation Comments Neutrophils % (Manual) (test code = 17687-7) 62 40-74 [facility]ymph[facility] % (Manual)2018-09-27 09:04:00 * Test Item Value Reference Range Interpretation Comments Lymphocytes % (Manual) (test code = 737-7) 20 19-48 [facility] % (Manual)2018-09-27 09:04:00* Test Item Value Reference Range Interpretation Comments Monocytes % (Manual) (test code = 744-3) 10 3.4-9.0 H [facility]osinophils % (Manual)2018-09-27 09:04:00 * Test Item Value Reference Range Interpretation Comments Eosinophils % (Manual) (test code = 714-6) 2 0-7 [facility]amyelocytes %2018-09-27 09:04:00* Test Item Value Reference Range Interpretation Comments Metamyelocytes % (test code = 740-1) 1 0-0 H [facility]Myelocytes %2018-09-27 09:04:00* Test Item Value Reference Range Interpretation Comments Myelocytes % (test code = 749-2) 3 0-0 H [facility]Reactive Xuzzdorvjvz1103-75-70 09:04:00* Test Item Value Reference Range Interpretation Comments Reactive Lymphocytes (test code = 13506-0) 2 [facility]atelet Zlnxyabx5577-07-96 09:04:00* Test Item Value Reference Range Interpretation Comments Platelet Estimate (test code = 85857-1) ADEQUATE [facility]ate[facility] Morphology Hkyrfxx9807-11-14 09:04:00* Test Item Value Reference Range Interpretation Comments Platelet Morphology Comment (test code = 86696-5) NORMAL [facility]Hypochromasia2018-12-24 09:04:00* Test Item Value Reference Range Interpretation Comments Hypochromasia (test code = 728-6) SLIGHT [facility]Anisocytosis2018-12-24 09:04:00* Test Item Value Reference Range Interpretation Comments Anisocytosis (test code = 702-1) SLIGHT [facility] Cell Morphology Obnhohu6958-66-26 09:04:00* Test Item Value Reference Range Interpretation Comments Red Cell Morphology Comment (test code = 6742-1) NORMAL [facility] HendersonThyroid Stimulating Hormone (TSH) 2018-09-27 06:55:00* Test Item Value Reference Range Interpretation Comments Thyroid Stimulating Hormone (TSH) (test code = 24683-5) 1.350 0.350-4.940 [facility] Dqebp4546-38-19 06:23:00* Test Item Value Reference Range Interpretation Comments Sodium Level (test code = 2951-2) 137 136-145 [facility]assium Gcrje7890-83-58 06:23:00* Test Item Value Reference Range Interpretation Comments Potassium Level (test code = 2823-3) 4.1 3.5-5.1 [facility]Chloride Qongc7864-29-40 06:23:00* Test Item Value Reference Range Interpretation Comments Chloride Level (test code = 2075-0) 105 98-107 [facility] HendersonCarbon Dioxide Ufwkg8618-15-44 06:23:00* Test Item Value Reference Range Interpretation Comments Carbon Dioxide Level (test code = 2028-9) 24 [facility]Anion Cgc8283-87-55 06:23:00* Test Item Value Reference Range Interpretation Comments Anion Gap (test code = 99868-0) 12.1 8-16 [facility]Blood Urea Erqojytt9377-12-31 06:23:00* Test Item Value Reference Range Interpretation Comments Blood Urea Nitrogen (test code = 3094-0) 21 - [facility] HendersonCreatinine2018-12-24 06:23:00* Test Item Value Reference Range Interpretation Comments Creatinine (test code = 2160-0) 0.89 0.57-1.11 [facility]UN/Creatinine Npsmr1243-69-50 06:23:00* Test Item Value Reference Range Interpretation Comments BUN/Creatinine Ratio (test code = 3097-3) 24 03-29 [facility] HendersonEstimat Glomerular Filtration Rate 2018-09-27 06:23:00* Test Item Value Reference Range Interpretation Comments Estimat Glomerular Filtration Rate (test code = 601457756) > 60 >60 Ranges were taken from the National Kidney Disease Education Program and the [facility] literature.Reference ranges:60 or greater: Rihhsr05-31 ( for 3 consecutive months): Chronic kidney disease 15 or less: Kidney failureUT Health HendersonGlucose Dohit1521-26-20 06:23:00* Test Item Value Reference Range Interpretation Comments Glucose Level (test code = MRQ7613) 109 74-118 [facility]Calcium Qnzji0546-92-49 06:23:00* Test Item Value Reference Range Interpretation Comments Calcium Level (test code = 00811-8) 9.0 8.4-10.2 [facility]Hemoglobin A1c Ultuebl6705-48-08 06:20:00 * Test Item Value Reference Range Interpretation Comments Hemoglobin A1c Percent (test code = Hemoglobin A1c Percent) 8.9 4.0-7.0 H [facility] HendersonWhite Blood Vdrsv1744-98-85 05:58:00* Test Item Value Reference Range Interpretation Comments White Blood Count (test code = 6690-2) 13.25 4.8-10.8 H [facility]Red Blood Hsove7732-34-85 05:58:00* Test Item Value Reference Range Interpretation Comments Red Blood Count (test code = 789-8) 4.49 3.6-5.1 [facility]Hemoglobin2018-12-24 05:58:00* Test Item Value Reference Range Interpretation Comments Hemoglobin (test code = 47199-7) 9.9 12.0-16.0 L [facility]Hematocrit2018-12-24 05:58:00* Test Item Value Reference Range Interpretation Comments Hematocrit (test code = 4544-3) 33.5 34.2-44.1 L [facility] HendersonMean Corpuscular Iytosm5652-55-29 05:58:00* Test Item Value Reference Range Interpretation Comments Mean Corpuscular Volume (test code = 787-2) 74.6 81-99 L [facility] HendersonMean Corpuscular Ndsbshizig9710-89-79 05:58:00* Test Item Value Reference Range Interpretation Comments Mean Corpuscular Hemoglobin (test code = 785-6) 22.0 28-32 L [facility] HendersonMean Corpuscular Hemoglobin Concent 2018-09-27 05:58:00* Test Item Value Reference Range Interpretation Comments Mean Corpuscular Hemoglobin Concent (test code = 786-4) 29.6 31-35 L [facility] HendersonRed Cell Distribution Rkjhs1137-15-97 05:58:00* Test Item Value Reference Range Interpretation Comments Red Cell Distribution Width (test code = 95580-2) 17.6 11.7 -14.4 H [facility] HendersonPlatelet Dkwse7981-64-76 05:58:00* Test Item Value Reference Range Interpretation Comments Platelet Count (test code = 777-3) 372 140-360 H [facility] HendersonNeutrophils (%) (Auto)2018-09-27 05:58:00 * Test Item Value Reference Range Interpretation Comments Neutrophils (%) (Auto) (test code = 39245-0) 63.2 38.7-80.0 [facility] HendersonLymphocytes (%) (Auto)2018-09-27 05:58:00 * Test Item Value Reference Range Interpretation Comments Lymphocytes (%) (Auto) (test code = 736-9) 18.3 18.0-39.1 [facility]Monocytes (%) (Auto)2018-09-27 05:58:00* Test Item Value Reference Range Interpretation Comments Monocytes (%) (Auto) (test code = 5905-5) 11.0 4.4-11.3 [facility]Eosinophils (%) (Auto)2018-09-27 05:58:00 * Test Item Value Reference Range Interpretation Comments Eosinophils (%) (Auto) (test code = 713-8) 1.3 0.0-6.0 [facility]Basophils (%) (Auto)2018-09-27 05:58:00* Test Item Value Reference Range Interpretation Comments Basophils (%) (Auto) (test code = 706-2) 0.7 0.0-1.0 [facility] HendersonIM GRANULOCYTES %2018-09-27 05:58:00* Test Item Value Reference Range Interpretation Comments IM GRANULOCYTES % (test code = IM GRANULOCYTES %) 5.5 0.0- 1.0 H [facility] HendersonNeutrophils # (Auto)2018-09-27 05:58:00* Test Item Value Reference Range Interpretation Comments Neutrophils # (Auto) (test code = 751-8) 8.4 2.1-6.9 H [facility]Lymphocytes # (Auto)2018-09-27 05:58:00* Test Item Value Reference Range Interpretation Comments Lymphocytes # (Auto) (test code = 02606-0) 2.4 1.0-3.2 [facility]Monocytes # (Auto)2018-09-27 05:58:00* Test Item Value Reference Range Interpretation Comments Monocytes # (Auto) (test code = 742-7) 1.5 0.2-0.8 H [facility]Eosinophils # (Auto)2018-09-27 05:58:00* Test Item Value Reference Range Interpretation Comments Eosinophils # (Auto) (test code = 711-2) 0.2 0.0-0.4 [facility]Basophils # (Auto)2018-09-27 05:58:00* Test Item Value Reference Range Interpretation Comments Basophils # (Auto) (test code = 704-7) 0.1 0.0-0.1 [facility] HendersonAbsolute Immature Granulocyte (auto 2018-09-27 05:58:00* Test Item Value Reference Range Interpretation Comments Absolute Immature Granulocyte (auto (logan t code = Absolute Immature Granulocyte (auto) 0.73 0-0.1 H [facility] HendersonActivated Partial Thromboplast Time 2018-09-26 06:50:00* Test Item Value Reference Range Interpretation Comments Activated Partial Thromboplast Time (test code = 61204-5) 29.2 23.8-35.5 [facility] HendersonCT PELVIS WITH -HLSX1556-61-50 16:58:[address] [address] Patient Name: ARGELIA HOLLOWAY MR #: [id number] : Age/Sex: 63/F Req #: [id number] Adm Physician: Ordered by: FANTA JASSO MD Report #: [id number] Location: [facility] Room/Bed: Procedure: 1222-0 002 HOPD/CT PELVIS WITH -HOPD Exam Date: 09/25/18 Ex am Time: 1620 REPORT STATUS: Signed EXAM: CT Pelvis WITH contrast INDICATION: Concern for perineal infectious process. [id number] COMPARISON: None. TECHNIQUE: Pelvis were sc anned utilizing a multidetector helical scanner from the iliac crest to the pu bic symphysis after administration of IV contrast. Coronal and sagittal reform ations were obtained. Routine protocol was performed. Scan was performed when during portal venous phase. IV CONTRAST: 100 mL of Omnipaque 300 O RAL CONTRAST: Water COMPLICATIONS: None RADIATION DOSE: Total DLP: 375.24 mGy*cm Estimated effective dose: (DLP x 0.015 x si ze factor) mSv CTDIvol has been reviewed. It is below the limits set by josie jaffe Radiation Protocol Committee (RPC). FINDINGS: LINES and TUBES: No ne. GI TRACT: Visualized bowel loops are unremarkable. No evidence of bowel obstruction. Normal appendix. PELVIC ORGANS/BLADDER: Uterus and adnexa a re unremarkable on limited CT assessment. Normal bladder. LYMPH NODES: 2. 3 cm right external iliac lymph node (series 2, image 31), likely reactive. VESSELS: Mild aortoiliac atherosclerotic disease. PERITONEUM / RETROPERI TONEUM: No free air or fluid. BONES: L4-5 degenerative changes. SOFT T ISSUES: Fat stranding and soft tissue gas, extending from right perineum to th e right labia major. IMPRESSION: Fat stranding and soft tissue gas, exte nding from right perineum to the right labia major, concerning for necrotizing fasciitis or Serene gangrene. Signed by: Dr. Morris Du MD on 2017 5:07 PM Dictated By: MORRIS DU MD 06 Transcribed By: RAOUL on 09/25/181706 C OPY TO: FANTA JASSO MD
--- OUTSIDE RECORDS SUMMARY | 2020-03-05 15:59 | XMS REPORT | Summary of Care ---
Author Author [facility] - Health Organization [facility] - Health Address Unknown Phone Unavailable Care Team Providers Care Forming Yardage Control Operator Name Role Phone Reshma Jacobs MD PCP Reason for Visit * Reason Comments Orders Encounter Details Care Team Description Date Type Department Reshma Jacobs MD [address] [place] [address] [id number] Orders 12/22/[address] [id number] Allergies Comments Active Allergy Reactions [...] 1 Take 1 tablet 60 tablet 2 06/03/201 mg tablet by mouth 2 9 (two) [...] long-term current use of insulin Active Insulin [place], Use to inject 100 Each 1 01 [...] Description Date Type Specialty Reshma Jacobs MD [address] [place] [address] [phone] 01/26/2020 Office Visit Endocrinology Diabe logan & Metabolism Order Schedule Name Type Priority Associated Diag noses 1 Occurrences starting 12/22/2019 until 12/21/2020 GLYCOSYLATED HEMOGLOBIN LAB Routine Type 2 diabetes mellitus (A1C) with diabetic polyneuropathy, without long-term current use of insulin 1 Occurrences starting 12/22/2019 until 12/21/2020 BASIC METABOLIC PANEL LAB Routine Type 2 d iabetes mellitus (NA, K, CL, CO2, GLUCOSE, with diabetic BUN, CREATININE, CA) polyneuropathy, without long-term current use of insulin 1 Occurrences starting 12/22/2019 until 12/21/2020 LIPID PANEL (22664)(TOTAL LAB Routine Type 2 diabetes mellitus CHOLESTEROL, with diabetic TRIGLYCERIDES, HDL) polyneuropathy, without long-term current use of insulin Mixed hyperlipidemia Health Maintenance Due Date Last Done Comments [...] polyneuropathy, without long-term current use of insulin - Primary Mixed hyperlipidemia documented in this encounter Insurance Type Payer Benefit Subscriber ID Effective Phone Address Plan / Dates Group Medicare MEDICARE MEDICARE xxxxxxxxxxx 2019- [phone] [address] [employer] Present [id number] [id number] Medicare Supplement [facility] [id number] 2019- P. O. [facility] Present [id number] MEDICARE [place]PP[place] [address] [place] [id number] documented as of this encounter
[2020-03-05] MEDS ORDERED: KETOROLAC TROMETHAMINE 60 MG/2 ML VIAL IM STA (16:19)
[2020-03-05] MEDS ORDERED: KETOROLAC TROMETHAMINE 60 MG/2 ML VIAL ONE (16:25)
--- NOTE | 2020-03-05 16:37 | Emergency Department Note ---
History of Present Illnes History of Present Illness Chief Complaint: bilateral rib pain s/p slip,fall and landed in a split History of Present Illness This is a 64 year old female. was doing well prior to this. also c/o minor left hamstring pain and minor left wrist pain. no other complaints Historian: Patient Arrival Mode: Car History limited by: condition of the patient (normal) Onset (how long ago): day(s) (2) Location: bilateral wrist Quality: sharp Radiation: non-radiation Severity: moderate Onset quality: sudden Duration (how long): day(s) (2) Timing of current episode: constant Progression: unchanged Chronicity: new Context: recent illness, recent surgery, recent immobilization, recent travel; trauma/injury (see above); new medications, hx of DVT/PE, non-compliance w/ medications Relieving factors: rest Exacerbating factors: movement Associated symptoms: denies other symptoms Treatments prior to arrival: NSAID Past Medical/Family History Physician Review I have reviewed the patient's past medical and family history. Any updates have been documented here. Past Medical History Recent Fever: No Clinical Suspicion of Infectio: No New/Unexplained Change in Ment: No Past Medical History: Diabetes Other Surgery: Ovarian cyst Social History Smoking Cessation: Never Smoker Counseling Performed: No Alcohol Use: None Any Illegal Drug Use: No TB Exposure/Symptoms: No Physically hurt or threatened: No Family History Family history of heart diseas: Yes Other Last Tetanus: ood Any Pre-Existing Lines (PICC,: No Is patient up to date on immun: Yes Last Flu: none Last Pneumovax: none Review of Systems Review of Systems Constitutional: no symptoms EENTM: no symptoms Cardiovascular: as per HPI Respiratory: no symptoms Gastrointestinal: no symptoms Genitourinary: no symptoms Musculoskeletal: as per HPI, muscle pain Neurological: no symptoms Psychological: no symptoms Endocrine: no symptoms Hematological/Lymphatic: no symptoms Review of other systems All other systems reviewed and negative. Physical Exam Related Data Allergies: Coded Allergies: Sulfa (Sulfonamide Antibiotics) (Verified Allergy, Unknown, 09/25/18) Triage Vital Signs Vital Signs Date Time Temp Pulse Resp B/P (MAP) Pulse Ox O2 Delivery O2 Flow Rate FiO2 03/05/20 15:58 97.7 78 18 153/72 97 Physical Exam CONSTITUTIONAL Constitutional: well-developed, well-nourished HENT HENT: normocephalic, atraumatic, oropharynx clear/moist, nose normal HENT L/R: left ext ear normal, right ext ear normal EYES Eyes: PERRL, conjunctivae normal NECK Neck: ROM normal PULMONARY Pulmonary: effort normal, breath sounds normal, chest tenderness (bilateral) CARDIOVASCULAR Cardiovascular: regular rhythm, heart sounds normal, capillary refill normal, normal rate GASTROINTESTINAL Abdominal: soft, nontender, bowel sounds normal GENITOURINARY Genitourinary: exam deferred SKIN Skin: warm, dry MUSCULOSKELETAL Musculoskeletal: ROM normal NEUROLOGICAL Neurological: alert, oriented x 3, no gross motor or sensory deficits PSYCHOLOGICAL Psychological: mood/affect normal, judgement normal Results Imaging Imaging results reviewed: Yes (cxr= neg) Critical Care Time Subsequent provider I assumed direction of critical care for this patient from another provider of my specialty. Assessment & Plan Reassessment Reassessment time: 16:49 Reassessment pain has gotten better s/p toradol Assessment & Plan Final Impression: (1) STRAIN OF MUSCLE AND TENDON OF FRONT WALL OF THORAX, INIT (2) UNSPECIFIED SPRAIN OF LEFT WRIST, INITIAL ENCOUNTER (3) STRAIN OF MUSC/TEND AT LOWER LEG LEVEL, LEFT LEG, INIT Assessment & Plan take naprosyn and flexeril as needed. rest. f/u with pcp Depart Disposition: HOME, SELF-CARE Last Vital Signs Date Time Temp Pulse Resp B/P (MAP) Pulse Ox O2 Delivery O2 Flow Rate FiO2 03/05/20 15:58 97.7 78 18 153/72 97 Home Meds Active Scripts Cyclobenzaprine Hcl (FLEXERIL) 5 Mg Tablet, 10 MG PO Q8H PRN for MUSCLE SPASMS for 10 Days, #30 TAB take after naprosyn to control pain if need be Prov:ILIANA BENITES 03/05/20 Naproxen (NAPROSYN) 500 Mg Tablet, 500 MG PO Q12H PRN for MODERATE PAIN (4-6), #30 TAB 1 Refill Prov:ILIANA BENITES 03/05/20 Reported Medications Calcium Acetate (CALCIUM ACETATE) 667 Mg Capsule 10/01/19 Insulin Glargine,Hum.rec.anlog (Basaglar Kwikpen U-100) 100 Unit/1 Ml Insuln.p en, 15 UNITS SQ HS 12/19/19 Glimepiride (GLIMEPIRIDE) 2 Mg Tablet, 5 MG PO DAILY, TAB 09/22/19 Atorvastatin Calcium (ATORVASTATIN CALCIUM) 20 Mg Tablet, 40 MG PO HS, #30 TAB 09/17/17 [Invokana] No Conflict Check, 300 MG PO DAILY 09/17/17 Metformin Hcl (METFORMIN HCL) 500 Mg Tablet, 2000 MG PO DAILY, TAB 09/14/14 Pantoprazole Sodium* (PROTONIX) 40 Mg Tablet.dr, 40 MG PO BID, TAB 09/14/14 Medications in the ED Ketorolac Tromethamine 60 mg ONCE STAT IM ; Start 03/05/20 at 16:19; Stop 03/05/20 at 16:20; Status UNV Ketorolac Tromethamine 60 mg STK-MED ONCE .ROUTE ; Start 03/05/20 at 16:25; Stop 03/05/20 at 16:21; Status DC ILIANA BENITES Mar 05, 2020 16:37
--- NOTE | 2020-03-05 16:41 | Diagnostic Imaging Report ---
EXAM: CXR 2 VIEW - HOPD DATE: 03/05/2020 4:29 PM INDICATION: Left-sided rib pain COMPARISON: None FINDINGS: The trachea is midline. The lungs are symmetrically expanded without evidence for large focal consolidation, pneumothorax, or significant pleural effusion. The cardiomediastinal silhouette and pulmonary vasculature are within normal limits. No acute osseous abnormality is identified. No radiographically evident rib fracture is evident on this two-view examination. IMPRESSION: No acute cardiopulmonary process identified. Signed by: Dr. Rakesh Ingram MD on 03/05/2020 4:37 PM
[2020-03-05] MEDS ORDERED: NAPROSYN500 MG PO (16:57)
[2020-03-05] MEDS ORDERED: CYCLOBENZAPRINE5 MG PO (16:57)
[2020-03-05 17:18] VITALS: BP 122/76
== END 2020-03-05 17:14 | disposition home or self-care (01) ==
LOC: FSED 15:56
DX: S76.812A Strain of other specified muscles, fascia and tendons at thigh level, left thigh, initial encounter (principal); S63.502A Unspecified sprain of left wrist, initial encounter; S29.011A Strain of muscle and tendon of front wall of thorax, initial encounter; W01.0XXA Fall on same level from slipping, tripping and stumbling without subsequent striking against object, initial encounter; E11.9 Type 2 diabetes mellitus without complications
CPT/HCPCS: 71046; 96372; 99283; J1885

== ENCOUNTER 2020-07-11 10:30 | Emergency (ER) | payer MEDICARE ==
[~2020-07-11] VITALS: Ht 162.6 cm; Wt 87.1 kg
[~2020-07-11 10:30] MED LIST changes: +CYCLOBENZAPRINE5 MG PO; +NAPROSYN500 MG PO
== END 2020-07-11 11:45 | disposition home or self-care (01) ==
LOC: FSED 11:42
DX: S51.802A Unspecified open wound of left forearm, initial encounter (principal); V43.52XA Car driver injured in collision with other type car in traffic accident, initial encounter; W22.11XA Striking against or struck by driver side automobile airbag, initial encounter; Y92.488 Other paved roadways as the place of occurrence of the external cause; E11.9 Type 2 diabetes mellitus without complications; D64.9 Anemia, unspecified; K21.9 Gastro-esophageal reflux disease without esophagitis
CPT/HCPCS: 99283

== ENCOUNTER → 2022-11-26 | Day surgery (SDC) | payer MEDICARE ==
[2022-11-21 15:00] LABS: BASOPHILS # (AUTO) 0.1 (0.0-0.1); BASOPHILS % 0.7 % (0.0-1.0); EOSINOPHILS # (AUTO) 0.2 (0.0-0.4); EOSINOPHILS % 1.7 % (0.0-6.0); HEMATOCRIT 36.6 % (34.2-44.1); HEMOGLOBIN 10.9 g/dL (12.0-16.0); LYMPHOCYTES # (AUTO) 1.9 (1.0-3.2); LYMPHOCYTES % 18.1 % (18.0-39.1); MEAN CORPUSCULAR HEMOGLOBIN 22.8 pg (28-32); MEAN CORPUSCULAR HGB CONC 29.8 g/dL (31-35); MEAN CORPUSCULAR VOLUME 76.4 fL (81-99); MONOCYTES # (AUTO) 1.1 (0.2-0.8); MONOCYTES % 10.8 % (4.4-11.3); NEUTROPHILS # (AUTO) 7.2 (2.1-6.9); NEUTROPHILS % 68.3 % (38.7-80.0); PLATELET COUNT 316 x10e3/uL (140-360); RED BLOOD COUNT 4.79 x10e6/uL (3.6-5.1); RED CELL DISTRIBUTION WIDTH 17.6 % (11.7-14.4)
[~2022-11-26] MED LIST changes: +FENTANYL CITRATE/PF 100MCG/2 ML INJ ONE; +GLUCAGON FOR INJ 1 MG VIAL ONE; +HUMALOG100 UNIT/1 SQ; +IRON PO; +KETAMINE HCL INJ 50 MG/ML 10 ML VIAL ONE; +LIDOCAINE HCL 2% LOCAL INJ 5 ML SDV VIAL INJ ONE; +METOCLOPRAMIDE HCL 10 MG/2ML VIAL ONE; +MIDAZOLAM HCL 2 MG/2 ML VIAL ONE; +PHENYLEPHRINE HCL 1% 10 MG/ML VIAL ONE; +TRESIBA FL100 UNIT/1 SQ; +[UNRECOGNIZED DRUG - OTHER] SQ
[2022-11-26 09:10] VITALS: BP 120/59
[2022-11-26 10:43] LABS: % IRON SATURATION 9 % (15-50); IRON 35 ug/dL (50-170); TOTAL IRON BINDING CAPACITY 402 ug/dL (261-478); TRANSFERRIN 287 mg/dL (180-382)
== END | disposition home or self-care (01) ==
LOC: OR 06:00
PROVIDERS: ATTEND Internal Medicine Gastroenterology
DX: Z09 Encounter for follow-up examination after completed treatment for conditions other than malignant neoplasm (principal); Z86.010 Personal history of colon polyps; K56.609 Unspecified intestinal obstruction, unspecified as to partial versus complete obstruction; K64.8 Other hemorrhoids; K21.9 Gastro-esophageal reflux disease without esophagitis; D64.9 Anemia, unspecified; E11.9 Type 2 diabetes mellitus without complications; E78.5 Hyperlipidemia, unspecified; Z88.2 Allergy status to sulfonamides; Z01.810 Encounter for preprocedural cardiovascular examination; Z01.812 Encounter for preprocedural laboratory examination; Z79.4 Long term (current) use of insulin; Z79.84 Long term (current) use of oral hypoglycemic drugs; Z79.899 Other long term (current) drug therapy; Z85.118 Personal history of other malignant neoplasm of bronchus and lung; Z92.21 Personal history of antineoplastic chemotherapy
CPT/HCPCS: 36415 ×2; 45378; 82607; 82746; 82948; 83540; 84466; 85025; 85045; 93005; J1610; J2001; J2250; J2370; J2765; J3010

== ENCOUNTER 2023-02-24 18:45 | Emergency (ER) | payer MEDICARE ==
[~2023-02-24] VITALS: Ht 162.6 cm; Wt 88.0 kg
[~2023-02-24 18:45] MED LIST changes: -FENTANYL CITRATE/PF 100MCG/2 ML INJ ONE; -GLUCAGON FOR INJ 1 MG VIAL ONE; -KETAMINE HCL INJ 50 MG/ML 10 ML VIAL ONE; -LIDOCAINE HCL 2% LOCAL INJ 5 ML SDV VIAL INJ ONE; -METOCLOPRAMIDE HCL 10 MG/2ML VIAL ONE; -MIDAZOLAM HCL 2 MG/2 ML VIAL ONE; -PHENYLEPHRINE HCL 1% 10 MG/ML VIAL ONE
[2023-02-24 19:19] VITALS: O2SAT 97
[2023-02-24] MEDS ORDERED: ACETAMINOPHEN 325 MG TAB PO ONE (19:30)
[2023-02-24] MEDS: SODIUM CHLORIDE 0.9% 1000ML 1,000 ML IV ONE ×2 (20:06→20:19)
[2023-02-24] MEDS ORDERED: CEFTRIAXONE 1 GM VIAL ONE (20:11)
[2023-02-24] MEDS ORDERED: CIPRO500 MG PO (20:15)
[2023-02-24] MEDS ORDERED: PYRIDIUM100 MG PO (20:16)
== END 2023-02-24 20:50 | disposition home or self-care (01) ==
LOC: FSED 19:06
DX: R30.0 Dysuria (principal); N39.0 Urinary tract infection, site not specified; D72.829 Elevated white blood cell count, unspecified; E11.65 Type 2 diabetes mellitus with hyperglycemia; D64.9 Anemia, unspecified; K21.9 Gastro-esophageal reflux disease without esophagitis; Z85.118 Personal history of other malignant neoplasm of bronchus and lung
CPT/HCPCS: 80053; 81003; 85025; 99283; J0696; 99282

== ENCOUNTER 2024-06-22 21:32 | Emergency (ER) | payer MEDICARE ==
[~2024-06-22] VITALS: Ht 162.6 cm; Wt 80.0 kg
[~2024-06-22 21:32] MED LIST changes: +CIPRO500 MG PO; +PYRIDIUM100 MG PO
[2024-06-22 22:27] VITALS: PULSE 88; RESP 19; TEMP 98.4
[2024-06-22] MEDS ORDERED: CLONAZEPAM0.5 MG PO (23:48)
[2024-06-22] MEDS ORDERED: AMOX TR-K CLV1 EAC2 PO (23:48)
[2024-06-23] MEDS: AMOXICILLIN/CLAVULANATE K 875 MG TAB PO STA (00:06)
[2024-06-23] MEDS: TETANUS/DIPHTHERIA TOX ADULT 0.5 ML SYR IM ONE (00:06)
[2024-06-23 00:45] VITALS: BP 158/83; PULSE 81; RESP 17; TEMP 98; O2SAT 98
== END 2024-06-23 00:15 | disposition home or self-care (01) ==
LOC: FSED 21:54
DX: S60.572A Other superficial bite of hand of left hand, initial encounter (principal); W54.0XXA Bitten by dog, initial encounter; Y92.89 Other specified places as the place of occurrence of the external cause; F41.9 Anxiety disorder, unspecified; E11.9 Type 2 diabetes mellitus without complications; J44.9 Chronic obstructive pulmonary disease, unspecified; D64.9 Anemia, unspecified; K21.9 Gastro-esophageal reflux disease without esophagitis; Z85.118 Personal history of other malignant neoplasm of bronchus and lung
CPT/HCPCS: 90471; 90714; 99283

== ENCOUNTER 2024-08-05 15:35 | Emergency (ER) | payer MEDICARE ==
[~2024-08-05] VITALS: Ht 162.6 cm; Wt 78.0 kg
[~2024-08-05 15:35] MED LIST changes: +AMOX TR-K CLV1 EAC2 PO; +CLONAZEPAM0.5 MG PO
[2024-08-05 16:08] VITALS: PULSE 77; RESP 18; TEMP 97.8; O2SAT 97
[2024-08-05] MEDS ORDERED: CEPHALEXIN500 MG PO (16:57)
== END 2024-08-05 17:05 | disposition home or self-care (01) ==
LOC: FSED 16:05
DX: R30.0 Dysuria (principal); N39.0 Urinary tract infection, site not specified; I10 Essential (primary) hypertension; E11.9 Type 2 diabetes mellitus without complications; J44.9 Chronic obstructive pulmonary disease, unspecified; D64.9 Anemia, unspecified; K21.9 Gastro-esophageal reflux disease without esophagitis; Z85.118 Personal history of other malignant neoplasm of bronchus and lung
CPT/HCPCS: 81003; 99283

== ENCOUNTER 2024-08-13 19:26 | Emergency (ER) | payer MEDICARE ==
[~2024-08-13] VITALS: Ht 162.6 cm; Wt 78.0 kg
[~2024-08-13 19:26] MED LIST changes: +CEPHALEXIN500 MG PO
[2024-08-13 19:30] VITALS: PULSE 76; RESP 17; TEMP 97.9
[2024-08-13 22:06] VITALS: BP 148/65; PULSE 76; TEMP 98.3; O2SAT 98
== END 2024-08-13 22:01 | disposition home or self-care (01) ==
LOC: FSED 19:31
DX: S63.592A Other specified sprain of left wrist, initial encounter (principal); W18.39XA Other fall on same level, initial encounter; Y93.01 Activity, walking, marching and hiking; Y92.89 Other specified places as the place of occurrence of the external cause; I10 Essential (primary) hypertension; E11.9 Type 2 diabetes mellitus without complications; J44.9 Chronic obstructive pulmonary disease, unspecified; D64.9 Anemia, unspecified; K21.9 Gastro-esophageal reflux disease without esophagitis; Z85.118 Personal history of other malignant neoplasm of bronchus and lung
CPT/HCPCS: 99283

== ENCOUNTER 2025-03-13 18:25 | Emergency (ER) | payer MEDICARE ==
[~2025-03-13] VITALS: Ht 162.6 cm; Wt 77.3 kg
[2025-03-13] MEDS ORDERED: BREO ELLIPTA 21 EACH INH (19:09)
[2025-03-13] MEDS ORDERED: SYMBICORT 16010.2 GM INH (19:09)
[2025-03-13] MEDS ORDERED: VENTOLIN HFA18 GM INH (19:09)
[2025-03-13] MEDS ORDERED: IOPAMIDOL 370 MG/ML 100 ML INFUS..BTL INJ ONE (19:24)
[2025-03-13] MEDS ORDERED: SODIUM CHLORIDE 0.9% 100 ML ONE (19:24)
[2025-03-13] MEDS: ALBUTEROL/IPRATROPIUM 3 ML NEB NEB ONE ×2 (21:39→22:24)
[2025-03-13] MEDS ORDERED: PREDNISONE20 MG PO (22:19)
[2025-03-13] MEDS ORDERED: LASIX20 MG PO (22:20)
[2025-03-13 22:25] VITALS: PULSE 100; RESP 20; TEMP 98.3
[2025-03-13] MEDS: PREDNISONE 20 MG TAB PO ONE (22:25)
[2025-03-13 22:32] VITALS: BP 171/79; PULSE 100; RESP 20; O2SAT 91
== END 2025-03-13 22:32 | disposition home or self-care (01) ==
LOC: FSED 18:57
DX: R06.02 Shortness of breath (principal); J44.9 Chronic obstructive pulmonary disease, unspecified; I50.9 Heart failure, unspecified; E11.9 Type 2 diabetes mellitus without complications; E78.5 Hyperlipidemia, unspecified; D64.9 Anemia, unspecified; K21.9 Gastro-esophageal reflux disease without esophagitis; R94.31 Abnormal electrocardiogram [ECG] [EKG]; Z85.118 Personal history of other malignant neoplasm of bronchus and lung
CPT/HCPCS: 36415; 71260; 80048; 84484; 85025; 93005; 99284; J7050; J7512; Q9967